=== PATIENT | female | born 1960 | race Caucasian/White ===

== ENCOUNTER 2018-12-15 12:25 | Emergency (ER) | payer SELFPAY ==
[~2018-12-15] VITALS: Ht 175.3 cm; Wt 77.1 kg
--- NOTE | 2018-12-15 12:32 | NUR ---
CAME IN FOR LEFT HIP, BUTTOCKS, AND LEG PAIN STARTED YESTERDAY, WORST TODAY, HX OS SCIATICA. TO ER BED 2, HOOKED TO MONITOR, PROVIDED W WARM BLANKET, AWAITING MD LOZADA.
--- NOTE | 2018-12-15 12:37 | NUR ---
HO RAGSDALE AT BEDSIDE
[2018-12-15] MEDS ORDERED: DEXAMETHASONE SOD PHOSPHATE 10 MG/ML VIAL ONE (12:49)
[2018-12-15] MEDS ORDERED: KETOROLAC TROMETHAMINE INJ 30 MG/ML VIAL ONE (12:49)
[2018-12-15] MEDS ORDERED: CYCLOBENZAPRINE 10 MG TABLET ONE (12:50)
[2018-12-15] MEDS ORDERED: DEXAMETHASONE SOD PHOSPHATE 4 MG/ML VIAL IM ONE (13:00)
[2018-12-15] MEDS ORDERED: CYCLOBENZAPRINE 10 MG TABLET PO ONE (13:00)
[2018-12-15] MEDS ORDERED: KETOROLAC TROMETHAMINE INJ 60 MG/2 ML VIAL IM ONE (13:00)
--- NOTE | 2018-12-15 13:00 | NUR ---
PT REFUSED IM MEDICATIONS (TORADOL AND DECADRON), MADE HO PHILLIP AWARE.
--- NOTE | 2018-12-15 13:21 | NUR ---
Patient discharged to home in stable condition. Written and verbal after care instructions given. Patient verbalizes understanding of instruction.
[2018-12-15 13:22] VITALS: BP 139/94
== END 2018-12-15 13:23 | disposition home or self-care (01) ==
LOC: ER 12:28
DX: M54.42 Lumbago with sciatica, left side (principal); Z98.890 Other specified postprocedural states
CPT/HCPCS: J1100; J1885

== ENCOUNTER 2019-01-13 13:06 | Emergency (ER) | payer SELFPAY ==
[~2019-01-13] VITALS: Ht 175.3 cm; Wt 85.3 kg
--- NOTE | 2019-01-13 13:08 | NUR ---
CAME IN FOR WORSENING BACK PAIN STARTED 4 DAYS AGO,NO RECENT TRAUMA. TO ER BED 2, HOOKED TO MONITOR, CHANGED TO GOWN, PROVIDED W WARM BLANKETHO AT BEDSIDE
[2019-01-13 13:50] VITALS: BP 128/81
--- NOTE | 2019-01-13 13:50 | NUR ---
Patient discharged to home in stable condition. Written and verbal after care instructions given. Patient verbalizes understanding of instruction.
== END 2019-01-13 13:51 | disposition home or self-care (01) ==
LOC: ER 13:16
DX: M54.42 Lumbago with sciatica, left side (principal); Z98.84 Bariatric surgery status

== ENCOUNTER 2020-02-24 11:39 | Emergency (ER) | payer SELFPAY ==
[~2020-02-24] VITALS: Ht 170.2 cm; Wt 81.6 kg
--- NOTE | 2020-02-24 11:55 | NUR ---
BIBS FROM HOME TO ER BED 9. AAOX4, NOPT IN RESP DISTRESS. BROUGHT IN ON WHEELCHAIR, DIFFICULT TO WALK D/T PAIN. CAME IN FOR BILAT LOWER BACK PAIN SHOOTING DOWN TO RIGHT FOOT SINCE MONDAY. PT STATES TAHT SENSATION IS TIGHT. RATES PAIN 05/07. AWARE, AWAITING FOR EVAL.
[2020-02-24] MEDS ORDERED: MORPHINE SULFATE INJ 4 MG/ML DISP.SYRIN ONE (12:08)
[2020-02-24] MEDS ORDERED: ONDANSETRON 4 MG TAB.RAPDIS ONE (12:09)
[2020-02-24] MEDS ORDERED: LORAZEPAM INJ 2 MG/ML VIAL ONE (12:09)
[2020-02-24] MEDS ORDERED: LORAZEPAM INJ 2 MG/ML VIAL IM ONE (12:30)
[2020-02-24] MEDS ORDERED: MORPHINE SULFATE INJ 2 MG/ML DISP.SYRIN IM ONE (12:30)
[2020-02-24] MEDS ORDERED: ONDANSETRON 4 MG TAB.RAPDIS SL ONE (12:30)
--- NOTE | 2020-02-24 12:33 | NUR ---
Patient discharged to home in stable condition. Written and verbal after care instructions given. Patient verbalizes understanding of instruction.Pt wheeled out to waiting area on wheelchair. She ambulatory with a steady gait
[2020-02-24 12:35] VITALS: BP 140/90
== END 2020-02-24 12:35 | disposition home or self-care (01) ==
LOC: ER 11:43
DX: M54.41 Lumbago with sciatica, right side (principal); G89.29 Other chronic pain; Z88.6 Allergy status to analgesic agent
CPT/HCPCS: 96372 ×2; 99284; J2060; J2270; Q0162

== ENCOUNTER 2020-05-13 11:46 | Emergency (ER) | payer SELFPAY ==
[~2020-05-13] VITALS: Ht 175.3 cm; Wt 72.6 kg
[2020-05-13 11:46] VITALS: BP 124/86
--- NOTE | 2020-05-13 12:14 | NUR ---
pt left ed w/out being seen by ed provider.
== END 2020-05-13 12:16 | disposition left against medical advice (07) ==
LOC: ER 11:48
DX: M25.541 Pain in joints of right hand (principal); R22.31 Localized swelling, mass and lump, right upper limb; Z53.21 Procedure and treatment not carried out due to patient leaving prior to being seen by health care provider